=== PATIENT | female | born 1990 | race African-American/Black ===

== ENCOUNTER 2019-01-01 08:53 | Emergency (ER) | payer SELFPAY ==
[~2019-01-01] VITALS: Ht 165.1 cm; Wt 75.7 kg
--- OUTSIDE RECORDS SUMMARY | 2019-01-01 08:56 | XMS REPORT ---
Author [facility] Address Unknown Phone Unavailable Care Team Providers Care Day Porter Name Role Phone Unavailable Unavailable Payers Payer Name Policy Type Policy Number Effective Date Expiration Date Problems This patient has no known problems. Allergies, Adverse Reactions, Alerts Allergy Name Allergy Type Status Severity Reaction(s) Onset Date Inactive Date Treating Clinician Comments peanut DA Active U 2018-12-03 00:00:00 papaya DA Active U 2018-12-03 00:00:00 pineapple DA Active U 2018-12-03 00:00:00 peanut DA Active SV 2018-01-31 00:00:00 papaya DA Active SV 2018-01-31 00:00:00 pineapple DA Active SV 2018-01-31 00:00:00 Medications This patient has no known medications.
[2019-01-01 09:28] LABS: BASOPHILS % 0.5 % (0.0-1.0); EOSINOPHILS % 0.7 % (0.0-6.0); HEMATOCRIT 34.8 % (34.2-44.1); HEMOGLOBIN 11.9 g/dL (12.0-16.0); LYMPHOCYTES # (AUTO) 1.7 (1.0-3.2); LYMPHOCYTES % 30.2 % (18.0-39.1); MEAN CORPUSCULAR HGB CONC 34.2 g/dL (31-35); MEAN CORPUSCULAR VOLUME 78.9 fL (81-99); MONOCYTES # (AUTO) 0.6 (0.2-0.8); MONOCYTES % 10.5 % (4.4-11.3); NEUTROPHILS # (AUTO) 3.2 (2.1-6.9); NEUTROPHILS % 57.9 % (38.7-80.0); PLATELET COUNT 235 x10e3/uL (140-360); RED BLOOD COUNT 4.41 x10e6/uL (3.6-5.1); RED CELL DISTRIBUTION WIDTH 14.6 % (11.7-14.4)
[2019-01-01 09:31] LABS: CLARITY,URINE CLEAR (CLEAR); COLOR,URINE YELLOW (YELLOW)
[2019-01-01 09:32] LABS: BILIRUBIN,URINE NEGATIVE (NEGATIVE); KETONES,URINE NEGATIVE (NEGATIVE); LEUKOCYTE ESTERASE ,URINE 1+ (NEGATIVE); NITRITE,URINE NEGATIVE (NEGATIVE); PREGNANCY TEST, URINE NEGATIVE (NEGATIVE); PROTEIN,URINE DIPSTICK NEGATIVE (NEGATIVE); URINE UROBILINOGEN 0.2 mg/dL (0.2 - 1)
[2019-01-01] MEDS ORDERED: KETOROLAC TROMETHAMINE 30 MG/ML VIAL IV STA (09:41)
[2019-01-01 09:42] LABS: BACTERIA,URINE FEW /HPF; EPITHELIAL CELLS,URINE FEW /LPF
[2019-01-01 09:44] LABS: ANION GAP 14.9 mmol/L (8-16); BLOOD UREA NITROGEN 7 mg/dL (7-26); BUN/CREATININE RATIO 9 (6-25); CALCIUM 9.6 mg/dL (8.4-10.2); CARBON DIOXIDE 24 mmol/L (22-29); CHLORIDE 104 mmol/L (98-107); CREATININE, SERUM 0.78 mg/dL (0.57-1.11); EST GLOMERULAR FILTRATION RATE > 60 ML/MIN (60-); GLUCOSE 84 mg/dL (74-118); POTASSIUM 3.9 mmol/L (3.5-5.1); SODIUM 139 mmol/L (136-145)
[2019-01-01] MEDS ORDERED: DICYCLOMINE HCL 20 MG/2 ML VIAL IM ONE (09:45)
[2019-01-01 09:58] LABS: AMYLASE 110 U/L (25-125); LIPASE 36 U/L (8-78)
--- NOTE | 2019-01-01 10:30 | NUR ---
DR KENDRICK AT BEDSIDE FOR RECTAL EXAM AND OCCULT STOOL, NOT TOLERATED WELL. Nunu OWEN RN AT BEDSIDE DURING EXAM.
--- NOTE | 2019-01-01 10:32 | Diagnostic Imaging Report ---
EXAMINATION: ABDOMEN 2 VIEW INDICATION: Left lower quadrant pain. COMPARISON: None FINDINGS: There is a nonobstructive bowel gas pattern. There is no free intraperitoneal air. Bowel gas partially obscures visualization of the kidneys. No evidence of calcification overlying the visualized kidneys or expected location of the ureters. The bony structures are unremarkable. IMPRESSION: No acute radiographic abnormality. Signed by: Dr. Tom Garcia MD on 01/01/2019 10:29 AM
--- NOTE | 2019-01-01 10:48 | NUR ---
DR KENDRICK AT BEDSIDE FOR PELVIC EXAM. LARGE AMOUNT OF THICK WHITE DISCHARGE NOTED UPON EXAM. Nunu OWEN RN AT BEDSIDE DURING EXAM. C/O LEFT PELVIC PAIN UPON EXAM. DR KENDRICK EDUCATED PATIENT ON THE CURRENT PLAN OF CARE,VERBALIZED UNDERSTANDING. NO SIGNS OF ACUTE DISTRESS NOTED AT THIS TIME.
[2019-01-01] MEDS ORDERED: METRONIDAZOLE 500 MG TAB PO ONE (11:00)
[2019-01-01] MEDS ORDERED: AZITHROMYCIN 250 MG TAB PO ONE (11:00)
[2019-01-01] MEDS ORDERED: CEFTRIAXONE SOD 1 GM/NS 50 ML 50 ML IV ONE (11:00)
--- NOTE | 2019-01-01 13:11 | Diagnostic Imaging Report ---
Exam: Pelvic ultrasound -transvaginal History: Evaluate for tuboovarian abscess. Left adnexal tenderness, purulent discharge. Comparison: None. Findings: Endovaginal sonographic evaluation of the pelvis. The uterus measures 9.6 x 4.9 x 7.0 cm. The endometrial stripe measures 0.3 cm. No evidence of solid mass. A 0.7 cm nabothian cyst is seen within the cervix. Right ovary measures 2.6 x 1.9 x 2.5 cm and left ovary measures 3.7 x 2.5 x 2.6 cm. Doppler flow is demonstrated in bilateral ovaries. No evidence of adnexal mass or fluid collection. Small amount of free fluid is seen in the cul-de-sac. Impression: No sonographic evidence of tubo-ovarian abscess. Small amount of free fluid within the pelvis, likely physiologic. Unremarkable appearance of bilateral ovaries with demonstrated Doppler flow. Signed by: Dr. Tom Garcia MD on 01/01/2019 1:07 PM
== END 2019-01-01 13:55 | disposition home or self-care (01) ==
LOC: ER 08:53
DX: R10.32 Left lower quadrant pain (principal); N73.0 Acute parametritis and pelvic cellulitis
CPT/HCPCS: 36415; 74019; 76830; 80048; 81001; 81025; 82150; 82270; 83690; 85025; 87491; 87591; 99284; J0500; J0696; J1885